=== PATIENT | male | born 1975 | race Caucasian/White ===

== ENCOUNTER 2022-01-13 10:00 | Outpatient (CLI) | payer OTHER ==
[2022-01-13 12:36] LABS: BASOPHILS % (AUTO) 0.6 %; EOSINOPHILS # (AUTO) 0.2 10^3/uL (0.0-0.7); EOSINOPHILS % (AUTO) 3.3 %; HCT - HEMATOCRIT 41.4 % (42.0-52.0); HGB - HEMOGLOBIN 14.3 g/dL (14.0-18.0); LYMPHOCYTES # (AUTO) 1.6 10^3/uL (1.5-3.5); LYMPHOCYTES % (AUTO) 34.2 %; MEAN CORPUSCULAR HEMOGLOBIN 29.9 pg (27.0-31.0); MEAN CORPUSCULAR HGB CONC 34.5 g/dL (32.0-36.0); MEAN CORPUSCULAR VOLUME 86.6 fL (80.0-94.0); MEAN PLATELET VOLUME 9.6 fL (7.4-11.4); MONOCYTES # (AUTO) 0.3 10^3/uL (0.0-1.0); MONOCYTES % (AUTO) 6.7 %; NEUTROPHILS # (AUTO) 2.6 10^3/uL (1.5-6.6); PLT - PLATELET COUNT 294 10^3/uL (130-450); RED BLOOD COUNT 4.78 10^6/uL (4.70-6.10); RED CELL DISTRIBUTION WIDTH 11.9 % (12.0-15.0); WHITE BLOOD COUNT 4.8 x10^3/uL (4.8-10.8)
[2022-01-13 13:31] LABS: THYROID STIMULATING HORMONE 0.69 uIU/mL (0.34-5.60)
[2022-01-13 13:36] LABS: ALBUMIN 4.1 g/dL (3.2-5.5); ALBUMIN/GLOBULIN RATIO 1.4 (1.0-2.2); ALKALINE PHOSPHATASE 53 IU/L (42-121); ALT ALANINE AMINOTRANSFERASE 28 IU/L (10-60); AST ASPARTATE AMINOTRANSFERASE 22 IU/L (10-42); BILIRUBIN,TOTAL 0.5 mg/dL (0.2-1.0); BUN - BLOOD UREA NITROGEN 12 mg/dL (6-20); CALCIUM 9.1 mg/dL (8.5-10.3); CARBON DIOXIDE - CO2 29 mmol/L (21-32); CHLORIDE 105 mmol/L (101-111); CHOL/HDL RATIO 4.5 (<5.0); CHOLESTEROL 158 mg/dL; CREATININE 0.8 mg/dL (0.6-1.2); GFR - MDRD 103 (>89); GLUCOSE 105 mg/dL (70-100); HDL CHOLESTEROL 35 mg/dL; LDL CHOLESTEROL,CALCULATED 107 mg/dL; LDL/HDL RATIO 3.1 (<3.6); POTASSIUM 4.1 mmol/L (3.5-5.0); SODIUM 140 mmol/L (135-145); TRIGLYCERIDES 79 mg/dL; VLDL CHOLESTEROL 16 mg/dL
== END 2022-01-13 10:01 | disposition home or self-care (01) ==
LOC: LAB.N 10:00
PROVIDERS: ATTEND Physician Assistant Medical
DX: Z00.00 Encounter for general adult medical examination without abnormal findings (principal); Z12.5 Encounter for screening for malignant neoplasm of prostate
CPT/HCPCS: 36415; 80053; 80061; 83721; 84153; 84443; 85025

== ENCOUNTER 2022-03-16 08:58 | Outpatient (CLI) | payer OTHER ==
--- NOTE | 2022-03-16 09:42 | CARDIAC PROCEDURE NOTE ---
Stress Test Report Service Date: 03/16/22 Service Time: 09:00 Ordering Provider: Vijaya Alvarez PA-C Indication for Test: Assess chest discomfort. 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 Further, he and his are in the middle of a major remodel of their home. In this context, he was seen by his provider erica rai weeks ago with concern for intermittent occurrence of left left upper chest pain and his blood pressure was elevated. He reports that he has had blood pressure elevation on prior occasions with prescription of antihypertensive meds, though has never started them, rather has been able to bring blood pressure down with greater attention to diet and weight loss. Thus he has not started the metoprolol that was prescribed at the recent provider visit. At that time he also reported snoring and nocturnal apneas, so a sleep work-up is pending. - He describes the left upper chest discomfort as a heaviness that is random in occurrence, lasting no greater than 30 seconds on any occasion and not associated with increased work of breathing or diaphoresis. He reports that his exertional tolerance remains fully intact. He believes that the stress of his multiple commitments likely underlies his chest discomfort episodes, but he is concerned, given his father's having angina and an abnormal stress test at age 49, ultimately leading to bypass surgery. Cardiac Risk Factors: Positive for recently diagnosed hypertension and family history of premature CAD in his father and some of latter's siblings; negative for diabetes, hyperlipidemia and tobacco smoking ever. A modifying factor is possible obstructive sleep apnea, for which work-up is pending. Type of Stress Test: ETT with Myocardial Perfusion Imaging Procedure: -Exercise Treadmill Test- After signing informed consent, the patient underwent rest SPECT imaging and then performed treadmill exercise using a Elliot protocol. The patient exercised for 9 minutes 7 seconds and achieved a peak heart rate of 143 (83 percent predicted maximum heart rate for age), and an estimated workload of 10.3 METS. The test was terminated due to shortness of breath, with leg fatigue. Resting heart rate: 72 Peak heart rate: 143 Normal response to exercise. Resting BP: 167/119 Peak BP: 256/138 Hypertensive at rest with exaggerated systolic BP increase and abnormal diastolic BP increase with exercise. Rhythm during exercise: Sinus rhythm throughout with rare isolated PVCs during both the exercise and recovery periods. Symptoms: No chest discomfort whatsoever was reported. EKG at rest showed normal sinus rhythm, with early precordial R/S transition, likely a normal variant; ST segments are isoelectric throughout. EKG at peak stress showed J-point depression with upsloping ST segments, likely NOT meeting diagnostic criteria for ischemia. In Recovery HR rapidly/normally returned to baseline; BP slowly decreased but remained elevated (157/103 at 7:00). Nuclear imaging performed at rest and with stress and will be reported separately. ISridhar MD, was present throughout this treadmill stress study and supervised it in its entirety. Summary: 1) Moderately reduced exercise tolerance for age and gender as evidenced by MARSHA of 14%. 2) Normal resting EKG. 3) Adequate level of exercise was nearly achieved by HR criteria on this treadmill stress test, as patient reached 83% of predicted maximal heart rate for age. Adequate level of stress was likely achieved, as indicated by a 3-fold increase in HR x SBP "rate-pressure" product. 4) Markedly hypertensive at rest, with exaggerated SBP and abnormal DBP responses to exercise. 5) No ischemic changes by EKG criteria were seen at peak stress. 6) Analysis of gated nuclear images reveals normal left ventricular size and systolic function; SPECT analysis reveals normal perfusion of the left ventricle at rest and following treadmill stress, thus no evidence of prior infarct or inducible ischemia. See separate report for more detail. CONCLUSIONS: 1) By symptoms, EKG response and myocardial perfusion imaging results this is a low risk ETT result. 2) Patient advised of the importance of attaining adequate BP control, and likely should be started on daily treatment with one of the three first-line recommended anti-hypertensive agents.
--- NOTE | 2022-03-17 09:15 | Nuclear Medicine Report ---
PROCEDURE: Rest and exercise myocardial perfusion SPECT with gated imaging and ejection fraction INDICATIONS: CHEST PAIN RADIOPHARMACEUTICAL: 15.8 mCi Tc-99m Myoview IV at rest and 44.4 mCi Tc-99m Myoview IV at peak exerc ise. Iqa-dta-kcgijmcy was performed. TECHNIQUE: Radiopharmaceutical was injected at peak stress test, and also at rest. SPECT images wer e obtained. SPECT myocardial perfusion images were displayed in short axis, horizontal long axis, an d vertical long axis views. Gated images were reviewed using AutoQU[employer] software. COMPARISON: None available. FINDINGS: Raw data: There is good myocardial labeling by radiotracer. No significant motion artifacts. Lung- to-heart ratio is 0.32 (normal is less than 0.46 for tetrafosmin tracer). Left ventricle function: Gated images demonstrate normal left ventricle wall thickening. Mild hypoki nesis noted in the septal wall. No transient ischemic dilation; TID is 0.91 (normal less than 1.30). The left ventricle resting end-diastolic volume is 102 mL. Left ventricle stress ejection fraction is 56%; normal values are above 45%. Myocardial perfusion: There is normal distribution of activity in the left and right ventricular yung cardium. No fixed or reversible perfusion defects. IMPRESSION: 1. Normal myocardial perfusion study with no fixed or reversible perfusion defects. 2. Mild left ventricular septal wall hypokinesia. Otherwise, normal left ventricular function with no rmal stress LVEF of 56%. PQRS ATTESTATIONS: Measure 322 - Is this imaging test primarily performed on a low-risk surgery patient for preoperative evaluation within 30 days preceding their low-risk non-cardiac surgery? Low-risk surgery is defined as cardiac or myocardial infarction less than 1%, including (but not limited to) endoscopic pr ocedures, superficial procedures, cataract surgery, and excisional breast surgery: Answer: No Measure 323 - Is this imaging test performed primarily for the monitoring of an asymptomatic patient who had percutaneous coronary intervention on the visit date or within 2 years of the visit date? An swer: No Measure 324 - Is this imaging test performed primarily for the initial detection and risk assessment on an asymptomatic, low coronary heart disease patient? Low CHD risk definition = clinicians should consider the maximum number of available patient factors used to estimate risk based on [place] (A TP III criteria), typically age, gender, diabetes, smoking status, and use of blood pressure medicati on, and integrate age appropriate estimates for missing elements, such as LDL or standard blood press ure. Answer: No Reviewed by: Sharon Muro MD, PhD on 03/17/2022 9:13 AM PDT Approved by: Sharon Muro MD, PhD on 03/17/2022 9:13 AM PDT Station ID: [id number]
== END 2022-03-16 08:59 | disposition home or self-care (01) ==
LOC: DI 08:58
PROVIDERS: ATTEND Physician Assistant Medical
DX: R07.9 Chest pain, unspecified (principal); I10 Essential (primary) hypertension; Z82.49 Family history of ischemic heart disease and other diseases of the circulatory system
CPT/HCPCS: 78452; 93016; 93017; 93018; A9500

== ENCOUNTER 2022-04-12 11:01 | Outpatient (CLI) | payer OTHER ==
--- NOTE | 2022-04-12 16:21 | XRAY Report ---
PROCEDURE: Foot 3 View BILAT INDICATIONS: CHRONIC BILATERAL FOOT PX TECHNIQUE: 3 views of the foot were acquired. COMPARISON: None FINDINGS: Bones: No fractures or dislocations. No suspicious bony lesions. Soft tissues: No tibiotalar joint effusion. Achilles tendon appears normal. IMPRESSION: No visualized acute fracture or dislocation. However, occult injury cannot be excluded. Recommend luiza rt interval imaging follow-up in 7-10 days as clinically indicated for additional evaluation. Reviewed by: Ashley Bruno MD on 04/12/2022 4:20 PM PDT Approved by: Ashley Bruno MD on 04/12/2022 4:20 PM PDT Station ID: [id number]
== END 2022-04-12 11:02 | disposition home or self-care (01) ==
LOC: DI.N 11:01
PROVIDERS: ATTEND Physician Assistant Medical
DX: M79.672 Pain in left foot (principal); M79.671 Pain in right foot; G89.29 Other chronic pain

== ENCOUNTER 2023-09-06 09:03 | Outpatient (CLI) | payer OTHER | END 2023-09-06 09:04 | disposition home or self-care (01) | LOC: SC 09:03 | PROVIDERS: ATTEND Nurse Practitioner Family | DX: G47.33 Obstructive sleep apnea (adult) (pediatric) (principal); E66.9 Obesity, unspecified; Z68.35 Body mass index [BMI] 35.0-35.9, adult | CPT/HCPCS: 95806 ==

== ENCOUNTER 2023-09-28 11:11 | Outpatient (CLI) | payer OTHER ==
--- NOTE | 2023-09-28 11:36 | Sleep Patient Instructions ---
Sleep Center Visit Summary - Patient Visit Information Reason for Visit: Sleep study follow-up - Patient Instructions Instructions Attached: CPAP, CPAP Dc Additional Instructions: You are being started on CPAP therapy with pressure setting at 4-15 cmH2O. You will need to call the sleep care office to set up your follow up once you have your APAP machine and we will schedule a visit to check compliance and response to therapy at that time. You may call the office with any concerns about pressure feeling too low or too much for adjustment, if needed. You should contact DME supplier for any questions or concerns about mask or equipment. Please call office to schedule a follow up appointment in the sleep care office one month after obtaining new device. - Clinic Information Contact: [facility] [address] [place] [address] [email or web address] T: [phone]
--- NOTE | 2023-09-28 11:40 | SLEEP CARE CONSULTATION ---
Information from patient questionnaire entered by Nubia Levin. I have reviewed and concur with the information entered by Nubia Levin. This document represents the service I personally performed and the decisions made by , Bisi Plummer ARNP. History of Present Illness Service Date and Time: 09/28/2023 1111 Initial [place] Sleepiness Scale score: 12 (08/24/23) Current [place] Sleepiness Scale score: 12 (09/28/23) Additional HPI information: FRANCO PEREZ returns for follow up and results of the recently performed home sleep study. The sleep study showed moderate obstructive sleep apnea with an average AHI of 25.5 and nadya oxygen saturation of 85%. I explained the pathophysiology behind obstructive sleep apnea. We then spent quite a bit of time discussing different treatment options. For mild obstructive sleep apnea, surgery and oral appliance are alternatives to nasal CPAP therapy but in moderate or severe cases, nasal CPAP is the most effective and reliable treatment. I reviewed the impact of weight changes on sleep apnea and strongly recommended losing weight. After some discussion, the patient opted to go with the nasal CPAP therapy. Nasal autoCPAP set at 4-15 cmH20 will be ordered with rationale explained. A manual titration study will be ordered if unable to find optimal pressure with office adjustments. I explained how CPAP machine works and what to expect when using the machine. Using CPAP every night in order to get used to it was emphasized. Patient advised to put CPAP mask on before getting into bed so as not to fall asleep without CPAP. To assist acclimation to CPAP use, it could also be used for a short time during day while reading or watching TV. The patient was instructed to call the CPAP supplier to discuss any mechanical problem that may occur. If the mask given is uncomfortable or is difficult to keep on through the night even with adjustment, contact the CPAP supplier as many will replace with another mask style if notified before 30 days. If snoring or perceives is not getting enough air or too much air from the machine, notify this office. Patient counseled not drink alcohol less than 4 hours before bedtime as it can increase snoring and apnea. Patient was cautioned about risks of drowsy driving until sleepiness symptoms resolve. Patient denies drowsy driving. Sleep Study - Results Type of Sleep Study: Home sleep study (COMPLETED 09/07/23) Prior sleep studies: No Polysomnography/Home Sleep Study results: Physician Impression: The quality of the study is good. The length of the study is adequate (> 240 minutes). Please also see the tabulated and graphic data. 1. Obstructive Sleep Apnea-Hypopnea (ICD-10 G47.33), moderate, with an AHI of 25.5/hr and nadya SaO2 of 85%. During the study, the patient had 123 apneas (122 obstructive, 0 central, 1 mixed) and 88 hypopneas. The longest episode lasted 131.0 seconds. The patient did not sleep supine during this study. 2. Hypoxemia (ICD-10 R09.02), mild, with the lowest oxygen saturation of 85 % and 5.4 minutes with SaO2 under 90%. Baseline oxygen saturation was normal (Average oxygen saturation was 93%). Allergies and Home Medications Known drug allergies: Yes (as listed) Drug allergies reviewed: Yes Home medication list reviewed: Yes (no changes) Allergy and home medication list: Allergies Penicillins Allergy (Verified 09/27/23 12:41) latex Adverse Reaction (Verified 09/27/23 12:41) Rash Review of Systems Review of systems same as previous: Yes (NO CHANGE) Physical Exam Vital signs obtained and entered by: NUBIA Seo MA Blood Pressure: 112/72 (LEFT ARM) Cuff size: regular Heart Rate: 71 O2 Saturation: 98 Height: 6 ft 4 in Weight: 305 lb 3.2 oz Body Mass Index: 37.1 BMI Classification: Obese Impression and Plan 1. Obstructive Sleep Apnea-Hypopnea Syndrome, moderate, with lowest oxygen saturation of 85%. Obviously this is the cause of the patients symptoms of unrefreshed sleep, and excessive daytime sleepiness. Positive pressure therapy could benefit hypertension and depression. As mentioned above, the patient will be started on nasal autoCPAP therapy with pressure set at 4-15 cmH2O. A manual titration study will be completed if unable to find optimal treatment pressure with office adjustments. Compliance guidelines also reviewed. A copy of compliance guidelines will be given for reference at check out. 2. Hypoxemia, mild, with a nadya oxygen saturation of 85% and 5.4 minutes spent under 90%. The baseline oxygen saturation was normal with an average oxygen saturation of 93%. 3. Obesity, unspecified. Currently patients BMI is 37.1. Obesity increases the risk of apnea, CPAP pressure requirements and overall health risks especially cardiovascular and diabetes. Thus patient is advised to lose weight. * Nasal auto CPAP therapy, pressure at 4-15 cm H2O. * Attempt to lose weight. * Avoid alcohol consumption near bedtime. * Avoid supine sleep until using CPAP. * The patient is again cautioned about driving until sleepiness completely resolves. * Return one month after CPAP obtained. I will assess response to therapy and compliance at that time. Counseling Topics: Weight loss health impact Prescriptions: Auto CPAP Plan: Compliance followup after obtaining new CPAP Visit Type: In Office Time Spent with Patient (minutes): 20 Provider Statement: I spent 100% of the Face to Face Visit with the patient with greater than 50% spent counseling the patient and coordination of care.
[2023-09-28 11:47] VITALS: BP 112/72; O2SAT 98
== END 2023-09-28 11:12 | disposition home or self-care (01) ==
LOC: SC 11:11
PROVIDERS: ATTEND Nurse Practitioner Family
DX: G47.33 Obstructive sleep apnea (adult) (pediatric) (principal); R09.02 Hypoxemia; E66.9 Obesity, unspecified; Z68.37 Body mass index [BMI] 37.0-37.9, adult
CPT/HCPCS: 99212; 99213

== ENCOUNTER 2024-06-26 10:36 | Outpatient (CLI) | payer OTHER ==
[2024-06-26 18:16] LABS: ALBUMIN 4.4 g/dL (3.2-5.5); ALBUMIN/GLOBULIN RATIO 1.7 (1.0-2.2); ALKALINE PHOSPHATASE 56 IU/L (42-121); ALT ALANINE AMINOTRANSFERASE 19 IU/L (10-60); AST ASPARTATE AMINOTRANSFERASE 19 IU/L (10-42); BILIRUBIN,TOTAL 0.6 mg/dL (0.2-1.0); BUN - BLOOD UREA NITROGEN 20 mg/dL (6-20); CALCIUM 9.9 mg/dL (8.5-10.3); CARBON DIOXIDE - CO2 29 mmol/L (21-32); CHLORIDE 106 mmol/L (101-111); CHOL/HDL RATIO 3.7 (<5.0); CHOLESTEROL 184 mg/dL; CREATININE 1.1 mg/dL (0.6-1.3); GFR - MDRD 71 (>89); GLUCOSE 96 mg/dL (74-104); HDL CHOLESTEROL 50 mg/dL; LDL CHOLESTEROL,CALCULATED 120 mg/dL; LDL/HDL RATIO 2.4 (<3.6); POTASSIUM 4.5 mmol/L (3.5-4.5); SODIUM 140 mmol/L (135-145); TRIGLYCERIDES 71 mg/dL; VLDL CHOLESTEROL 14 mg/dL
[2024-06-26 18:23] LABS: THYROID STIMULATING HORMONE 1.31 uIU/mL (0.34-5.60)
[2024-06-26 18:26] LABS: BASOPHILS % (AUTO) 0.6 %; EOSINOPHILS # (AUTO) 0.3 10^3/uL (0.0-0.7); EOSINOPHILS % (AUTO) 5.7 %; HCT - HEMATOCRIT 44.1 % (42.0-52.0); HGB - HEMOGLOBIN 14.9 g/dL (14.0-18.0); LYMPHOCYTES # (AUTO) 1.9 10^3/uL (1.5-3.5); LYMPHOCYTES % (AUTO) 37.8 %; MEAN CORPUSCULAR HGB CONC 33.8 g/dL (32.0-36.0); MEAN CORPUSCULAR VOLUME 88.7 fL (80.0-94.0); MEAN PLATELET VOLUME 9.3 fL (7.4-11.4); MONOCYTES # (AUTO) 0.3 10^3/uL (0.0-1.0); MONOCYTES % (AUTO) 6.7 %; NEUTROPHILS # (AUTO) 2.4 10^3/uL (1.5-6.6); PLT - PLATELET COUNT 249 10^3/uL (130-450); RED BLOOD COUNT 4.97 10^6/uL (4.70-6.10); RED CELL DISTRIBUTION WIDTH 12.5 % (12.0-15.0); WHITE BLOOD COUNT 4.9 x10^3/uL (4.8-10.8)
== END 2024-06-26 10:37 | disposition home or self-care (01) ==
LOC: LAB.N 10:36
PROVIDERS: ATTEND Physician Assistant Medical
DX: Z00.00 Encounter for general adult medical examination without abnormal findings (principal); Z12.5 Encounter for screening for malignant neoplasm of prostate
CPT/HCPCS: 36415; 80053; 80061; 83721; 84153; 84443; 85025